=== PATIENT | female | born 1995 | race Asian ===

== ENCOUNTER 2020-12-01 23:02 | Emergency (ER) | payer OTHER ==
[~2020-12-01] VITALS: Ht 157.5 cm; Wt 57.6 kg
--- NOTE | 2020-12-01 23:27 | NUR ---
Patient came to the er bed 3 c/o right rib pain. Patient states that she lifts heavy stuff at work and 'probably pulled something'. Patient is Alert and Oriented X4. Ambulatory with a steady gait. Patient is changed into a gown. will continue to monitor the patient closely.
[2020-12-01] MEDS ORDERED: NAPROXEN 250 MG TABLET ONE (23:28)
[2020-12-01] MEDS ORDERED: NAPR-1164 PO (23:28)
[2020-12-01] MEDS: NAPROXEN 500 MG TABLET PO SCH (23:31)
--- NOTE | 2020-12-01 23:32 | NUR ---
xray at bedside.
--- NOTE | 2020-12-02 00:11 | NUR ---
CALLED [facility] TO HAVE IMAGES READ
--- NOTE | 2020-12-02 00:49 | NUR ---
Patient discharged to home in stable condition. Written and verbal after care instructions given. Patient verbalizes understanding of instruction.
[2020-12-02 00:56] VITALS: BP 115/67
== END 2020-12-02 00:57 | disposition home or self-care (01) ==
LOC: ER 23:02
DX: S29.011A Strain of muscle and tendon of front wall of thorax, initial encounter (principal); R07.81 Pleurodynia; X50.0XXA Overexertion from strenuous movement or load, initial encounter; Y93.89 Activity, other specified; Y92.89 Other specified places as the place of occurrence of the external cause; Y99.0 Civilian activity done for income or pay
CPT/HCPCS: 71100-TC